=== PATIENT | female | born 1960 | race Caucasian/White ===

== ENCOUNTER → 2017-05-17 | Outpatient (CLI) | payer BC | LOC: CT 03-19 08:00 | DX: R91.1 Solitary pulmonary nodule (principal) | CPT/HCPCS: 71250 ==

== ENCOUNTER → 2021-02-18 | Outpatient (CLI) | payer OTHER ==
[2021-02-18 11:58] LABS: HEMOGLOBIN 13.4 gm/dl (12.3-15.3); RED BLOOD COUNT 5.05 M/UL (4.00-5.10); WHITE BLOOD COUNT 8.6 K/UL (4.5-11.0)
[2021-02-18 12:31] LABS: BUN/CREATININE RATIO 13 (0-10)
[2021-02-19 10:16] LABS: CREATININE, URINE 111.4 mg/dL (Not Estab.)
[2021-02-19 15:11] LABS: CHOLESTEROL, TOTAL 167 mg/dL (100-199); HDL SIZE 8.8 nm (>=9.2); HDL-C 48 mg/dL (>39); HDL-P (TOTAL) 31.8 umol/L (>=30.5); LARGE HDL-P 4.5 umol/L (>=4.8); LARGE VLDL-P 7.2 nmol/L (<=2.7); LDL SIZE 20.9 nm (>20.5); LDL SIZE 20.9 nm (>=20.8); LDL-C 94 mg/dL (0-99); LDL-P 1016 nmol/L (<1000); LP-IR SCORE 66 (<=45); SMALL LDL-P 458 nmol/L (<=527); TRIGLYCERIDES 142 mg/dL (0-149); VLDL SIZE 53.2 nm (<=46.6)
== END ==
LOC: LAB 11:13
PROVIDERS: Emergency Medicine
DX: E11.69 Type 2 diabetes mellitus with other specified complication (principal); I10 Essential (primary) hypertension; E55.9 Vitamin D deficiency, unspecified; R53.83 Other fatigue; E78.2 Mixed hyperlipidemia
CPT/HCPCS: 36415; 80053; 80061; 82043; 82570; 83036; 83704; 84550; 85025

== ENCOUNTER 2021-06-24 09:54 | Emergency (ER) | payer OTHER ==
[~2021-06-24] VITALS: Ht 152.4 cm; Wt 122.5 kg
== END 2021-06-24 16:40 | disposition home or self-care (01) ==
LOC: ER1 09:54
DX: Z23 Encounter for immunization (principal); U07.1 COVID-19; E78.5 Hyperlipidemia, unspecified; E11.9 Type 2 diabetes mellitus without complications; I10 Essential (primary) hypertension
CPT/HCPCS: 71045; 99283; M0243; U0002

== ENCOUNTER → 2021-08-04 | Outpatient (CLI) | payer OTHER | LOC: KOH-I 12:01 | DX: R07.81 Pleurodynia (principal) | CPT/HCPCS: 71046 ==

== ENCOUNTER 2021-08-08 08:19 | Inpatient (IN) | payer OTHER ==
[~2021-08-08] VITALS: Ht 152.4 cm; Wt 122.5 kg
[2021-08-08 09:48] LABS: HEMOGLOBIN 11.5 gm/dl (12.3-15.3); RED BLOOD COUNT 5.02 M/UL (4.00-5.10)
[2021-08-08 10:12] LABS: WHITE BLOOD COUNT 23.4 K/UL (4.5-11.0)
[2021-08-08 10:18] LABS: BUN/CREATININE RATIO 16 (0-10)
[2021-08-08] MEDS ORDERED: ONDANSETRON ODT8 MG PO (15:40)
[2021-08-08] MEDS ORDERED: ATORVASTATIN CA20 MG PO (15:41)
[2021-08-08] MEDS ORDERED: SACCHAROMYCES250 MG PO (15:41)
[2021-08-08] MEDS ORDERED: METFORMIN HCL500 MG PO (15:42)
[2021-08-08] MEDS ORDERED: MELOXICAM7.5 MG PO (15:42)
[2021-08-08] MEDS ORDERED: LOSARTAN-HCTZ1 EACH PO (15:42)
[2021-08-08] MEDS ORDERED: METOPROLOL SUCC50 MG PO (15:43)
[2021-08-08] MEDS ORDERED: PROTONIX40 MG PO (15:43)
[2021-08-08] MEDS ORDERED: OZEMPIC1 MG/0.71 SQ (15:46)
[2021-08-08] MEDS ORDERED: VENLAFAXINE HC150 MG PO (15:47)
[2021-08-08] MEDS ORDERED: VENLAFAXINE HCL75 M1 PO (15:48)
[2021-08-08] MEDS ORDERED: BREO ELLIPTA 21 EACH INH (15:49)
[2021-08-08] MEDS ORDERED: LORATADINE10 MG PO (15:49)
[2021-08-08] MEDS ORDERED: ASPIRIN EC81 MG PO (15:50)
[2021-08-08] MEDS ORDERED: VITAMIN D325 MCG PO (15:50)
--- NOTE | 2021-08-09 06:35 | NUR ---
pt woke up at approximately 5am yelling "help me help me". This RN entered pt sitting on side of bed stating "I got to pee I got to pee" I assisted pt to bathroom where she stated, "I want to go home I dont want to be here." Pt had pulled the call light out of the wall. States "my side is killing me". Provided pt with prn medicine per jan. pt returned to sleeping no other needs from this rn at this time.
[2021-08-09 08:16] LABS: HEMOGLOBIN 11.1 gm/dl (12.3-15.3); RED BLOOD COUNT 4.93 M/UL (4.00-5.10); WHITE BLOOD COUNT 20.9 K/UL (4.5-11.0)
[2021-08-09 08:39] LABS: BUN/CREATININE RATIO 14 (0-10)
[2021-08-10 07:08] LABS: HEMOGLOBIN 10.1 gm/dl (12.3-15.3); RED BLOOD COUNT 4.44 M/UL (4.00-5.10); WHITE BLOOD COUNT 20.1 K/UL (4.5-11.0)
[2021-08-10 07:09] LABS: CANCER ANTIGEN (CA) 15-3 28.5 U/mL (0.0-25.0); CEA 2.4 ng/mL (0.0-4.7)
[2021-08-10 07:28] LABS: BUN/CREATININE RATIO 14 (0-10)
[2021-08-11 06:44] LABS: HEMOGLOBIN 9.9 gm/dl (12.3-15.3); RED BLOOD COUNT 4.42 M/UL (4.00-5.10); WHITE BLOOD COUNT 21.6 K/UL (4.5-11.0)
[2021-08-11 07:07] LABS: BUN/CREATININE RATIO 12 (0-10)
[2021-08-12 07:56] LABS: HEMOGLOBIN 9.9 gm/dl (12.3-15.3); RED BLOOD COUNT 4.3 M/UL (4.00-5.10); WHITE BLOOD COUNT 25.9 K/UL (4.5-11.0)
[2021-08-12 08:19] LABS: BUN/CREATININE RATIO 15 (0-10)
[2021-08-12] MEDS ORDERED: AUGMENTIN 875-1 EACH PO (10:51)
[2021-08-12] MEDS ORDERED: AMLODIPINE BESYL5 MG PO (10:51)
[2021-08-12] MEDS ORDERED: HEMOCYTE324 MG PO (12:01)
== END 2021-08-12 13:21 | disposition home or self-care (01) | DRG 435 ==
LOC: ER1 08:19 → M/S 12:17 → CDU 12:17 → M/S 20:47
PROVIDERS: Internal Medicine; Physician Assistant; Physician Assistant Medical; ADMIT Internal Medicine
PROC: 0FB03ZX Excision of Liver, Percutaneous Approach, Diagnostic (ICD-10-PCS; principal; 2021-08-11)
DX: C22.8 Malignant neoplasm of liver, primary, unspecified as to type (principal); J18.9 Pneumonia, unspecified organism; E22.2 Syndrome of inappropriate secretion of antidiuretic hormone; Z68.43 Body mass index [BMI] 50.0-59.9, adult; Z20.822 Contact with and (suspected) exposure to COVID-19; J45.909 Unspecified asthma, uncomplicated; E11.9 Type 2 diabetes mellitus without complications; G47.33 Obstructive sleep apnea (adult) (pediatric); Z96.641 Presence of right artificial hip joint; K21.9 Gastro-esophageal reflux disease without esophagitis; E66.9 Obesity, unspecified; E78.5 Hyperlipidemia, unspecified; M19.90 Unspecified osteoarthritis, unspecified site; D50.9 Iron deficiency anemia, unspecified; Z82.49 Family history of ischemic heart disease and other diseases of the circulatory system; Z79.82 Long term (current) use of aspirin; Z83.3 Family history of diabetes mellitus; Z79.4 Long term (current) use of insulin
CPT/HCPCS: 36415; 71045; 71260; 77012; 80048; 80053; 81001; 82378; 82550; 82553; 82962; 83540; 83550; 83605; 83690; 83735; 83874; 84295; 84484; 85025; 85027; 85610; 85730; 86300; 86304; 87040; 93005; 96374; 96375; 99152; 99153; 99285; J1650; J1756; J2250; J2270; J2310; J2405; J2543; J3010; J7030; Q9967; U0002